=== PATIENT | male | born 1990 | race Caucasian/White ===

== ENCOUNTER 2017-10-20 08:38 | Emergency (ER) | payer OTHER ==
[2017-10-20] MEDS ORDERED: NS 1,000 ML IV ONE ×2 (09:00→09:04)
[2017-10-20] MEDS ORDERED: ONDANSETRON 4 MG/2 ML VIAL IVP ONE (09:00)
--- NOTE | 2017-10-20 09:04 | EDPHY ---
H & P Smoking Status: Never smoked Time Seen by Provider: 10/20/17 08:54 HPI/ROS: CHIEF COMPLAINT: Vomiting, diarrhea HISTORY OF PRESENT ILLNESS: 26-year-old male presents to the emergency department with multiple episodes of vomiting and diarrhea that began around 3 o 'clock this morning. The patient has vomited numerous times. He is unable to keep anything down. He does not think that he has urinated since some time yesterday. No fevers or chills. No abdominal pain. No flank pain. No chest pain or difficulty breathing. No known ill contacts. No known contaminated food or water. No recent travel. REVIEW OF SYSTEMS: Constitutional: No fever, no chills. Eyes: No double or blurry vision. ENT: No sore throat. Respiratory: No cough, no shortness of breath. Cardiac: No chest pain. Gastrointestinal: Vomiting, diarrhea. No abdominal pain. Genitourinary: No dysuria. Musculoskeletal: No neck or back pain. Skin: No rashes. Neurological: No headache. (Vidya Kat) Past Medical/Surgical History: Orthopedic injury (Vidya Kat) Social History: Single (Vidya Kat) Physical Exam: General Appearance: Alert, no distress. Afebrile. No apparent distress. Nontoxic appearing. Eyes: Pupils equal and round. Extraocular motions are all intact. ENT: Mouth: Mucous membranes dry bearing Respiratory: No wheezing, rhonchi, or rales, lungs are clear to auscultation. Cardiovascular: Regular rate and rhythm. Gastrointestinal: Abdomen is soft and nontender, no masses, no rebound or guarding, bowel sounds normal. No CVA tenderness bilaterally. Neurological: Alert and oriented x 3, cranial nerves II through XII grossly intact Skin: Warm and dry, no rashes. Musculoskeletal: Nontender to palpate along the cervical, thoracic or lumbar spine. Neck is supple. Extremities: Full range of motion and no peripheral edema. Psychiatric: Patient is oriented X 3, there is no agitation. (Vidya Kat) Constitutional: Initial Vital Signs Temperature (C) 36.5 C 10/20/17 08:41 Heart Rate 74 10/20/17 08:41 Respiratory Rate 16 10/20/17 08:41 Blood Pressure 104/89 H 10/20/17 08:41 O2 Sat (%) 96 10/20/17 08:41 O2 Delivery Mode Room Air Allergies/Adverse Reactions: No Known Allergies Allergy (Verified 10/20/17 08:40) Home Medications: Medication Instructions Recorded NK [No Known Home Meds] 10/20/17 Medical Decision Making ED Course/Re-evaluation: 26-year-old male presents to the emergency department with multiple episodes of vomiting and diarrhea. Clinically the patient appears dehydrated. He has not urinated in several hours. He had an IV established and was given IV Zofran and IV normal saline. Laboratory studies are unremarkable. Patient feels much better and is tolerating p.o. fluids. He is comfortable being discharged home. (Vidya Kat) Differential Diagnosis: Including but not limited to viral gastroenteritis, dehydration, electrolyte abnormality, acute appendicitis, kidney stone (Vidya Kat) Other Provider: PHYSICIAN DOCUMENTATION: The patient was evaluated and managed by the Physician Roof Technician. My co- signature indicates that I have reviewed this chart and I agree with the findings and plan of care as documented. I am the secondary supervising physician. (Cirilo Valdovinos) - Data Points Laboratory Results: Laboratory Results 10/20/17 08:50 10/20/17 08:50 10/20/17 10/20/17 08:50 08:50 WBC 13.23 10^3/uL H 10^3/uL (3.80-9.50) RBC 5.22 10^6/uL 10^6/uL (4.40-6.38) Hgb 16.9 g/dL g/dL (13.7-17.5) Hct 47.0 % % (40.0-51.0) MCV 90.0 fL fL (81.5-99.8) MCH 32.4 pg pg (27.9-34.1) MCHC 36.0 g/dL g/dL (32.4-36.7) RDW 11.9 % % (11.5-15.2) Plt Count 186 10^3/uL 10^3/uL (150-400) MPV 10.5 fL fL (8.7-11.7) Neut % (Auto) 91.4 % H % (39.3-74.2) Lymph % (Auto) 2.7 % L % (15.0-45.0) [place] % (Auto) 4.6 % % (4.5-13.0) Eos % (Auto) 0.5 % L % (0.6-7.6) Baso % (Auto) 0.2 % L % (0.3-1.7) Nucleat RBC Rel Count 0.0 % % (0.0-0.2) Absolute Neuts (auto) 12.10 10^3/uL H 10^3/uL (1.70-6.50) Absolute Lymphs (auto) 0.36 10^3/uL L 10^3/uL (1.00-3.00) Absolute Monos (auto) 0.61 10^3/uL 10^3/uL (0.30-0.80) Absolute Eos (auto) 0.06 10^3/uL 10^3/uL (0.03-0.40) Absolute Basos (auto) 0.02 10^3/uL 10^3/uL (0.02-0.10) Absolute Nucleated RBC 0.00 10^3/uL 10^3/uL (0-0.01) Immature Gran % 0.6 % % (0.0-1.1) Immature Gran # 0.08 10^3/uL 10^3/uL (0.00-0.10) Sodium 140 mEq/L mEq/L (134-144) Potassium 5.0 mEq/L mEq/L (3.5-5.2) Chloride 105 mEq/L mEq/L (97-110) Carbon Dioxide 21 mEq/l L mEq/l (22-31) Anion Gap 14 mEq/L mEq/L (8-16) BUN 21 mg/dL mg/dL (7-23) Creatinine 0.9 mg/dL mg/dL (0.7-1.3) Estimated GFR > 60 Glucose 95 mg/dL mg/dL (70-100) Calcium 10.0 mg/dL mg/dL (8.5-10.4) Specimen Hemolysis 135 Medications Given: Discontinued Medications Sodium Chloride (Ns) 1,000 mls @ 0 mls/hr IV ONCE ONE PRN Reason: Wide Open Stop: 10/20/17 09:01 Last Admin: 10/20/17 09:06 Dose: 1,000 mls Sodium Chloride (Ns) 1,000 mls @ 0 mls/hr IV ONCE ONE PRN Reason: Wide Open Stop: 10/20/17 09:05 Last Admin: 10/20/17 09:06 Dose: 1,000 mls Ondansetron HCl (Zofran) 4 mg IVP EDNOW ONE Stop: 10/20/17 09:01 Last Admin: 10/20/17 09:06 Dose: 4 mg Departure - Departure Disposition: Home, Routine, Self-Care Clinical Impression: Gastroenteritis, Dehydration Condition: Good Instructions: Dehydration (ED), Gastroenteritis (ED) Additional Instructions: Clear liquids and slowly advance diet as tolerated. Abdominal Pain: Return to the Emergency Department immediately for increasing pain, fever, vomiting, or if not completely better in 8-12 hours. Referrals: Sumanth Honeycutt MD [Medical Doctor] - As per Instructions (Primary care provider speech correction assistant)
[2017-10-20 10:30] VITALS: O2SAT 93
[2017-10-20 10:58] LABS: PLATELET COUNT 186 10^3/uL (150-400)
[2017-10-20 11:47] VITALS: BP 96/68; RESP 18
[2017-10-20 12:02] VITALS: PULSE 84; TEMP 98.6
== END 2017-10-20 12:03 | disposition home or self-care (01) ==
PROC: 3E0337Z Introduction of Electrolytic and Water Balance Substance into Peripheral Vein, Percutaneous Approach (ICD-10-PCS; principal; 2017-10-20)
DX: K52.9 Noninfective gastroenteritis and colitis, unspecified (principal); E86.0 Dehydration
CPT/HCPCS: 96374; J2405